=== PATIENT | female | born 1985 | race Caucasian/White ===

== ENCOUNTER 2017-11-26 16:35 | Inpatient (IN) ==
[2017-11-26] MEDS ORDERED: PHENobarb/HYOSCY/ATROPINE/SCOP 1 DOSE BOTTLE PO ONE (17:14)
--- NOTE | 2017-11-26 17:29 | Emergency Department Note ---
General Adult HPI - General Source: patient Mode of arrival: ambulatory Limitations: no limitations - History of Present Illness Onset (ago): day(s) (5) Location: chest Radiation: non-radiation Severity: moderate Severity scale (1-10): 8 Quality: burning, stabbing, aching, sharp Consistency: intermittent Improves with: none Worsens with: other (laying flat) Associated symptoms: Reports: chest pain, shortness of breath. Denies: confusion, cough, diaphoresis, fever/chills, headaches, malaise, nausea/vomiting , syncope, weakness Treatments Prior to Arrival: other (gas X) <Jovita Acosta - Last Filed: 11/26/17 17:40> <Yayo Maloney - Last Filed: 11/26/17 20:19> - General Chief complaint: Shortness of Breath/Dyspnea Stated complaint: shortness of breath Time Seen by Provider: 11/26/17 17:07 - History of Present Illness HPI Narrative: 32-year-old female in ED today with present. Patient states for the last 5 days she's been having difficulty breathing. When she takes a deep breath she has chest pain more on the right side. At first she thought she was getting better and then it got worse. Patient states she is unable to lay flat the pain is sharp/stabbing and at times feels very heavy. Patient states it is an 8 out of 10. Patient does not smoke cigarettes. Patient is a type II diabetic uncontrolled last A1c 8.9. Patient did take some Gas-X per family advice did feel some relief from pressure when belching or having flatulence but did not take care of the pain. Patient states she has no nausea/vomiting after eating meals nor does she feel any additional pain after food intake. ( Jovita Acosta) - Related Data Previous Rx's Medication Instructions Recorded ferrous sulfate ER 325 mg (65 mg 325 mg PO BID #60 cap 03/20/16 iron) capsule,extended release blood sugar diagnostic strips See Dose Instructions .ROUTE 05/23/17 .MEDSUPPLY #100 each blood-glucose meter kit See Dose Instructions .ROUTE 05/23/17 .MEDSUPPLY #1 each lancets 33 gauge See Dose Instructions .ROUTE 05/23/17 .MEDSUPPLY #100 each metformin 500 mg tablet 1,000 mg PO BIDCC #360 tab 07/01/17 ibuprofen 800 mg tablet 800 mg PO TID PRN #60 tab 08/08/17 norgestimate 0.18 mg/0.215 mg/0.25 1 tab PO Q24H #84 tab 08/08/17 mg-ethinyl estradiol 25 mcg tablet canagliflozin 100 mg tablet 100 mg PO QAM #30 tab 09/18/17 Allergies Allergy/AdvReac Type Severity Reaction Status Date / Time capsaicin AdvReac Intermediate Blister Verified 11/26/17 16:38 Review of Systems Constitutional: Denies: fever, chills, weakness Eyes: Denies: eye pain, eye discharge ENT ED: Denies: ear pain, throat pain, dental pain, congestion Cardiovascular: Reports: chest pain, dyspnea on exertion. Denies: palpitations , edema Respiratory: Reports: shortness of breath. 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 Surgical history ED: Reports: - Social History smoking status: Never smoker Alcohol use: Reports: None <Jovita Acosta - Last Filed: 11/26/17 17:40> <Yayo Maloney - Last Filed: 11/26/17 20:19> - Past Medical History [facility] Narrative: All Active Problems (Last Reviewed 08/08/17 @ 08:20 by Kathryn Castellon DO) Abnormal Pap smear of cervix (Chronic) Cervical radiculopathy at C7 (Acute) Neck muscle strain (Acute) History of Papanicolaou smear of cervix (Chronic 06/12/11) Asthma (Chronic) Ingrown toenail (Chronic) Injury of great toe (Chronic) Abdominal pain (Chronic) Menorrhagia (Chronic) Diabetes mellitus (Chronic) Back pain (Chronic) Past Surgical History (Last Reviewed 08/08/17 @ 08:20 by Kathryn Castellon DO) delivery delivered (Resolved) No pertinent past surgical history (Resolved) Family History (Last Reviewed 08/08/17 @ 08:20 by Kathryn Castellon DO) Father Heart murmur Diabetes mellitus Hypoglycemia (Jovita Acosta) Physical Exam Limitations: no limitations General appearance: alert, in no apparent distress, other (pt is flushed) Head: atraumatic, normocephalic, normal inspection Eye: Present: normal appearance, PERRL. Absent: conjunctival injection ENT: normal exam, normal oropharynx, mucous membranes moist, normal external ear exam Neck: Present: normal inspection. Absent: lymphadenopathy Chest: Present: normal inspection, symmetric chest wall rise. Absent: tenderness Respiratory: Present: normal lung sounds bilaterally. Absent: respiratory distress, rales/crackles, wheezes Cardiovascular: Present: tachycardia. Absent: systolic murmur, diastolic murmur Abdominal: Present: soft, tenderness (RUQ), normal bowel sounds, Oviedo's sign. Absent: distention, guarding, rebound, rigidity Abdominal tenderness: Present: RUQ, moderate Extremities: Present: normal inspection. Absent: pedal edema Back: Present: normal inspection. Absent: tenderness, CVA tenderness (R), CVA tenderness (L) Neurological: Present: alert, oriented X3, normal gait Psychiatric: Present: normal affect, normal mood. Absent: depressed, agitated, anxious Skin: Present: warm, dry, intact, normal color. Absent: cyanosis, diaphoresis, erythema <Jovita Acosta - Last Filed: 11/26/17 17:40> Course <Jovita Acosta - Last Filed: 11/26/17 17:40> <Yayo Maloney - Last Filed: 11/26/17 20:19> Course Narrative: I assumed care of the patient from Jovita Acosta at 1800 and agree with the assessment findings. Patient is currently sitting the emergency department without significant amount pain. She rates pain 7 out of 10. Labs are still pending. Ultrasound completed that shows cholelithiasis with cholecystitis, common bile duct mildly dilated. (Yayo Maloney) Vital Signs Temperature 97.9 F 11/26/17 16:35 Pulse Rate 92 H 11/26/17 16:35 Respiratory Rate 22 11/26/17 16:35 Blood Pressure 136/86 11/26/17 16:35 Pulse Oximetry (%) 99 11/26/17 16:35 Temperature 97.9 F 11/26/17 16:35 Pulse Rate 81 11/26/17 19:21 Respiratory Rate 17 11/26/17 19:40 Blood Pressure 141/87 11/26/17 19:40 Pulse Oximetry (%) 100 11/26/17 19:21 Medical Decision Making - Lab Data Result diagrams: 11/26/17 17:30 11/26/17 17:30 <Jovita Acosta - Last Filed: 11/26/17 17:40> - Medical Records Medical records reviewed: Yes I reviewed the patient's medical records. - Lab Data Lab results reviewed: Yes I reviewed the patient's lab results. Result diagrams: 11/26/17 17:30 11/26/17 17:30 - Radiology Data Radiology results reviewed: Yes I reviewed the patient's radiology results. <Yayo Maloney - Last Filed: 11/26/17 20:19> - [facility] Narrative Medical decision making narrative: Primary patient GI cocktail with no relief. [facility] this provider shift ended. (Jovita Acosta) Gallbladder ultrasound shows cholecystitis. Labs today are remarkably well. Spoke with Dr. Percy Santos who accepted the patient for surgical consultation, and he will see the patient in the morning. She will be admitted to medical/ surgical floor. Patient was given 2 mg of morphine here in the emergency department for her pain which did help with her pain. Start the patient on Zosyn 3.375 mg every 6 hours, normal saline at 100 mL per hour. Patient will be nothing by mouth after midnight. Ondansetron if needed for nausea. (Yayo Maloney) - Lab Data Lab Results 11/26/17 11/26/17 11/26/17 Range/Units 17:30 17:30 17:30 WBC 7.4 (4.5-11.0) K/mcL RBC 4.34 (4.00-5.20) M/mcL Hgb 10.5 L (12.0-15.0) g/dL Hct 31.6 L (36.0-48.0) % MCV 72.8 L (80.0-100.0) fL MCH 24.2 L (26.0-34.0) pg MCHC 33.3 (31.0-36.0) g/dL RDW 17.3 H (11.5-14.5) % Plt Count 389 (140-440) K/mcL MPV 8.3 (7.4-10.4) fL Gran % 68.3 (38.0-78.0) % Lymph % (Auto) 25.3 (15.5-49.0) % Calhoun % (Auto) 3.8 (1.0-12.0) % Eos % (Auto) 2.0 (0.0-7.0) % Baso % (Auto) 0.6 (0.0-2.0) % Gran # 5.1 (1.8-8.0) K/mcL Lymph # (Auto) 1.9 (1.5-4.8) K/mcL Calhoun # (Auto) 0.3 (0.1-0.9) K/mcL Eos # (Auto) 0.1 (0.0-0.7) K/mcL Baso # (Auto) 0 (0.0-0.3) K/mcL D-Dimer (0.00-0.40) ug/ml Sodium 137 (133-145) mmol/L Potassium 3.9 (3.3-5.1) mmol/L Chloride 101 (96-108) mmol/L Carbon Dioxide 23 (22-30) mmol/L Anion Gap 13.0 (8-16) BUN 8 (6-20) mg/dl Creatinine 0.6 (0.6-1.1) mg/dl GFR Calculation 121 Glucose 263 H (70-105) mg/dL Calcium 8.5 L (8.6-10.4) mg/dl Total Bilirubin < 0.2 (0.0-1.0) mg/dL AST 11 (0-37) U/l ALT 11 (0-40) U/l Alkaline Phosphatase 77 (39-117) U/L Total Creatine Kinase 53 (24-170) IU/L CK-MB (CK-2) 1.2 (0-2.9) ng/ml Myoglobin < 25 L (25-58) ng/ml Troponin T < 0.01 (0-0.03) ng/ml Total Protein 6.5 (5.9-8.4) gm/dL Albumin 3.6 (3.2-5.2) gm/dL Globulin 2.9 (2.2-3.7) gm/dL Albumin/Globulin Ratio 1.2 (1.0-2.3) Lipase (7-60) U/L 11/26/17 11/26/17 Range/Units 17:30 17:31 WBC (4.5-11.0) K/mcL RBC (4.00-5.20) M/mcL Hgb (12.0-15.0) g/dL Hct (36.0-48.0) % MCV (80.0-100.0) fL MCH (26.0-34.0) pg MCHC (31.0-36.0) g/dL RDW (11.5-14.5) % Plt Count (140-440) K/mcL MPV (7.4-10.4) fL Gran % (38.0-78.0) % Lymph % (Auto) (15.5-49.0) % Calhoun % (Auto) (1.0-12.0) % Eos % (Auto) (0.0-7.0) % Baso % (Auto) (0.0-2.0) % Gran # (1.8-8.0) K/mcL Lymph # (Auto) (1.5-4.8) K/mcL Calhoun # (Auto) (0.1-0.9) K/mcL Eos # (Auto) (0.0-0.7) K/mcL Baso # (Auto) (0.0-0.3) K/mcL D-Dimer 0.47 H (0.00-0.40) ug/ml Sodium (133-145) mmol/L Potassium (3.3-5.1) mmol/L Chloride (96-108) mmol/L Carbon Dioxide (22-30) mmol/L Anion Gap (8-16) BUN (6-20) mg/dl Creatinine (0.6-1.1) mg/dl GFR Calculation Glucose (70-105) mg/dL Calcium (8.6-10.4) mg/dl Total Bilirubin (0.0-1.0) mg/dL AST (0-37) U/l ALT (0-40) U/l Alkaline Phosphatase (39-117) U/L Total Creatine Kinase (24-170) IU/L CK-MB (CK-2) (0-2.9) ng/ml Myoglobin (25-58) ng/ml Troponin T (0-0.03) ng/ml Total Protein (5.9-8.4) gm/dL Albumin (3.2-5.2) gm/dL Globulin (2.2-3.7) gm/dL Albumin/Globulin Ratio (1.0-2.3) Lipase 17 (7-60) U/L Disposition <Jovita Acosta - Last Filed: 11/26/17 17:40> Pt seen by PARK INTERPRETIVE SPECIALIST/PA only: Yes <Yayo Maloney - Last Filed: 11/26/17 20:19> Clinical Impression: Cholecystitis Disposition: Xfer As Inpt ([facility]) Condition: Fair Referrals: Kathryn Castellon DO [Primary Care Provider] -
--- NOTE | 2017-11-26 17:30 | XRay Report ---
CLINICAL INFORMATION: Chest Pain COMPARISON: 07/29/2012 FINDINGS: The heart size, mediastinum and pulmonary vessels are unremarkable. The lungs are clear. There are no effusions. The bones and soft tissues are within normal limits. IMPRESSION: Normal chest. Interpreted and Authenticated by: Arjun Ta 11/26/17
[2017-11-26 18:17] LABS: Basophils # (Auto) 0 K/mcL (0.0-0.3); Basophils % (Auto) 0.6 % (0.0-2.0); Eosinophils # (Auto) 0.1 K/mcL (0.0-0.7); Granulocytes % (Auto) 68.3 % (38.0-78.0); Lymphocytes # (Auto) 1.9 K/mcL (1.5-4.8); Lymphocytes % (Auto) 25.3 % (15.5-49.0); Mean Cell Volume 72.8 fL (80.0-100.0); Mean Corpuscular HGB Conc 33.3 g/dL (31.0-36.0); Mean Corpuscular Hemoglobin 24.2 pg (26.0-34.0); Monocytes # (Auto) 0.3 K/mcL (0.1-0.9); Monocytes % (Auto) 3.8 % (1.0-12.0); Platelet Count 389 K/mcL (140-440); RBC 4.34 M/mcL (4.00-5.20); Red Cell Distribution Width 17.3 % (11.5-14.5)
[2017-11-26 18:39] LABS: Myoglobin < 25 ng/ml (25-58)
[2017-11-26 18:44] LABS: ALT/SGPT 11 U/l (0-40); Albumin 3.6 gm/dL (3.2-5.2); Albumin/Globulin Ratio 1.2 (1.0-2.3); Alkaline Phosphatase 77 U/L (39-117); Blood Urea Nitrogen 8 mg/dl (6-20); Creatine Kinase 53 IU/L (24-170); Creatine Kinase MB 1.2 ng/ml (0-2.9)
--- NOTE | 2017-11-26 18:52 | Ultrasound Report ---
CLINICAL INFORMATION: Right upper quadrant pain COMPARISON: None. FINDINGS: There is a 2 cm stone within the gallbladder neck. Gallbladder wall is thickened (5.4 mm) with overlying focal tenderness and a small amount of pericholecystic fluid. Findings are compatible with cholecystitis. Common bile duct is normal - 6 mm. Liver is diffusely hyperechoic compatible with fatty change. Pancreas is suboptimally imaged, but no gross abnormalities. No IMPRESSION: Cholecystitis Interpreted and Authenticated by: Arjun Ta 11/26/17
[2017-11-26] MEDS ORDERED: ONDANSETRON 4 MG/2 ML VIAL IV PRN (19:45)
[2017-11-26] MEDS: 0.9 % SODIUM CHLORIDE 1,000 ML IV SCH (20:28)
[2017-11-26] MEDS: PIPERACILLIN SODIUM/TAZOBACTAM 3.375 GM in DEXTROSE 5% IN WATER 50 ML IV SCH (20:28)
[2017-11-26 23:36] LABS: Appearance,Urine CLEAR; Bacteria,Urine 0 /hpf (0); Bilirubin,Urine NEG (NEG); Color,Urine YELLOW; Glucose,Urine (UA) >=500 mg/dL (NEG); Leukocyte Esterase,Urine NEG /uL (NEG); Protein,Urine NEG (NEG); Specific Gravity,Urine 1.017 (1.000-1.035); Urine Blood >=1.0 mg/dL (<0.03); Urine RBC > 182 /hpf (0-1); Urine Squamous Epithelial Cell < 1 /hpf (0-4); Urine WBC 0 /hpf (0-4); Urobilinogen,Urine NEG (NEG)
[2017-11-27] MEDS: PIPERACILLIN SODIUM/TAZOBACTAM 3.375 GM in DEXTROSE 5% IN WATER 50 ML IV SCH ×4 (02:17→17:18)
[2017-11-27] MEDS: 0.9 % SODIUM CHLORIDE 1,000 ML IV SCH ×3 (07:30→21:46)
--- NOTE | 2017-11-27 09:18 | General Surg History&Physical ---
History of Present Illness Patient information: Note initiated : 11/27/17 at 9:16 am Service Date, if different from initiated Date: [] Patient: Tiffany Ledbetter 32 y/o F admitted on 11/26/17 for shortness of breath. Chief Complaint: [] HPI: Ms. Ledbetter is a 32 year old F with history of recurrent lower chest discomfort. Discomfort was not positional. She had multiple attacks and attacks of indigestion. The symptoms were not related to food intake. She had a cardiac workup which was negative. Upper abdominal ultrasound reveals multiple gallstones with a large stone impacted in the cystic duct with gallbladder wall thickening and pericholecystic fluid and tissue edema. Patient is admitted with acute cholecystitis. She is counseled for laparoscopic cholecystectomy Past History Past medical history: Diabetes mellitus Chronic low back pain Past surgical history: x1 Past family history: Diabetes mellitus Breast cancer Past social history: Never smoker Occasional alcohol intake Never drug use Medications and Allergies Home Medications Medication Instructions Recorded Confirmed Type metformin 500 mg tablet 1,000 mg PO BIDCC #360 tab 07/01/17 11/27/17 Rx ibuprofen 800 mg tablet 800 mg PO TID PRN #60 tab 08/08/17 11/27/17 Rx Allergies Allergy/AdvReac Type Severity Reaction Status Date / Time capsaicin AdvReac Intermediate Blister Verified 11/26/17 16:38 Exam Temp Pulse Resp BP Pulse Ox 96.9 F L 72 12 100/66 97 11/27/17 07:04 11/27/17 07:04 11/27/17 07:04 11/27/17 07:04 11/27/17 07:04 - General physical appearance well developed, well nourished, no distress, other (Overweight) - Eyes PERRL, normal ocular movement. negative: icteric - ENT normal pinna, normal nares, normal mucosa, no hearing loss, no congestion - Head Head exam IM: Present: atraumatic, normocephalic - Neck no masses, no bruits, trachea midline, no lymphadectomy, no venous distension - Cardiovascular Cardiovascular exam IM: Present: normal rate and rhythm - Respiratory normal expansion, normal respiratory effort, clear to percussion, clear to auscultation - Abdomen Abdomen: Present: soft, tender (Right upper quadrant tenderness with mild guarding; normal active bowel sounds; no distention), bowel sounds Hernia: Present: none - Genitourinary Present: normal external genitalia - Integumentary Present: no rash, no growths, no abnormal pigmentation - Neurologic Present: normal coordination, normal sensation - Musculoskeletal Present: normal gait, normal posture - Psychiatric Present: oriented to time, oriented to person, oriented to place, speech is normal, memory intact Assessment and Plan (1) Cholelithiasis with cholecystitis without obstruction Patient counseled for laparoscopic cholecystectomy. It will be performed later today. Status: Acute (2) Diabetes mellitus type 2 in obese Sliding scale insulin coverage until patient can take p.o. medication Status: Acute
[2017-11-27] MEDS: INSULIN LISPRO 1 UNIT/0.01 ML UNIT SQ SCH ×3 (09:37→17:19)
[2017-11-27] MEDS ORDERED: fentaNYL 250 MCG/5 ML VIAL IV ONE (12:40)
[2017-11-27] MEDS ORDERED: MIDAZOLAM 5 MG/5 ML VIAL IV ONE (12:40)
[2017-11-27] MEDS ORDERED: GLYCOPYRROLATE 0.2 MG/ML VIAL IV ONE (12:40)
[2017-11-27] MEDS ORDERED: ROCURONIUM 10 MG/ML ML IV ONE (12:40)
[2017-11-27] MEDS ORDERED: PROPOFOL 200 MG/20 ML VIAL IV ONE (12:40)
[2017-11-27] MEDS ORDERED: ONDANSETRON 4 MG/2 ML VIAL IV ONE (12:40)
[2017-11-27] MEDS ORDERED: DEXAMETHASONE 10 MG/ML VIAL IV ONE (12:40)
[2017-11-27] MEDS ORDERED: NEOSTIGMINE 1 MG/ML VIAL IV ONE (12:40)
[2017-11-27] MEDS ORDERED: LIDOCAINE HCL/PF 100 MG/5 ML SYRINGE IV ONE (12:40)
[2017-11-27] MEDS ORDERED: FLUMAZENIL 0.1 MG/ML ML IV PRN (13:08)
[2017-11-27] MEDS ORDERED: diphenhydrAMINE 50 MG/ML VIAL IV PRN (13:08)
[2017-11-27] MEDS ORDERED: ONDANSETRON 4 MG/2 ML VIAL IV PRN (13:08)
[2017-11-27] MEDS ORDERED: ACETAMINOPHEN 1,000 MG/100 ML BOTTLE IV ONE (13:08)
[2017-11-27] MEDS ORDERED: NALOXONE HCL 0.4 MG/ML VIAL IV PRN (13:08)
[2017-11-27] MEDS ORDERED: LACTATED RINGERS 250 ML IV PRN (13:08)
[2017-11-27] MEDS ORDERED: IPRATROPIUM/ALBUTEROL 3 ML AMPUL.NEB NEB PRN (13:08)
[2017-11-27] MEDS ORDERED: BENZOCAINE/MENTHOL 1 LOZENGE PO PRN (13:08)
[2017-11-27] MEDS ORDERED: KETOROLAC 30 MG/ML VIAL IV PRN (13:08)
[2017-11-27] MEDS ORDERED: MEPERIDINE 25 MG/ML SYRINGE IV PRN (13:08)
[2017-11-27] MEDS ORDERED: PROMETHAZINE 25 MG/ML VIAL IV PRN (13:08)
[2017-11-27] MEDS ORDERED: LACTATED RINGERS 1,000 ML IV SCH (13:15)
--- NOTE | 2017-11-27 13:47 | Brief Operative Note ---
Date of procedure: 11/27/17 Pre-op diagnosis: ACUTE CHOLECYSTITIS WITH CHOLELITHIASIS Post-op diagnosis: other (ACUTE EMPYEMA OF GALLBLADDER WITH CHOLELITHIASIS) Procedure: LAPAROSCOPIC CHOLECYSTECTOMY Grafts/Implants: No Anesthesia: GETA Findings: SEVERE INFLAMMATION OF GALLBLADDER WITH EMPYEMA AND CYSTIC DUCT OBSTRUCTION Complications: none Surgeon: Yessy Santos Estimated blood loss (cc): 10 Specimens Removed/Pathology: other (GALLBLADDER) Condition: stable Disposition: PACU
[2017-11-27] MEDS ORDERED: ACETAMINOPHEN 1,000 MG/100 ML BOTTLE IV PRN (13:53)
[2017-11-27] MEDS: fentaNYL 100 MCG/2 ML VIAL IV PRN ×2 (14:27→14:30)
[2017-11-27 18:39] LABS: ALT/SGPT 438 U/l (0-40); Albumin 3.4 gm/dL (3.2-5.2); Albumin/Globulin Ratio 1.1 (1.0-2.3); Alkaline Phosphatase 146 U/L (39-117); Bilirubin,Direct 0.4 mg/dL (0.0-0.3); Blood Urea Nitrogen 7 mg/dl (6-20); Gamma Glutamyl Transpeptidase 88 U/L (5-36); Uric Acid 2.1 mg/dL (2.5-8.0)
[2017-11-28] MEDS: INSULIN LISPRO 1 UNIT/0.01 ML UNIT SQ SCH ×6 (00:03→23:31)
[2017-11-28] MEDS: PIPERACILLIN SODIUM/TAZOBACTAM 3.375 GM in DEXTROSE 5% IN WATER 50 ML IV SCH ×5 (05:06→23:30)
[2017-11-28 06:16] LABS: Basophils # (Auto) 0 K/mcL (0.0-0.3); Basophils % (Auto) 0.2 % (0.0-2.0); Eosinophils # (Auto) 0 K/mcL (0.0-0.7); Eosinophils % (Auto) 0 % (0.0-7.0); Granulocytes % (Auto) 87.9 % (38.0-78.0); Lymphocytes # (Auto) 0.9 K/mcL (1.5-4.8); Lymphocytes % (Auto) 8.3 % (15.5-49.0); Mean Cell Volume 73.3 fL (80.0-100.0); Mean Corpuscular HGB Conc 32.9 g/dL (31.0-36.0); Mean Corpuscular Hemoglobin 24.1 pg (26.0-34.0); Monocytes # (Auto) 0.4 K/mcL (0.1-0.9); Monocytes % (Auto) 3.6 % (1.0-12.0); Platelet Count 390 K/mcL (140-440); RBC 4.16 M/mcL (4.00-5.20); Red Cell Distribution Width 16.8 % (11.5-14.5)
[2017-11-28 07:25] LABS: ALT/SGPT 483 U/l (0-40); Albumin 3.1 gm/dL (3.2-5.2); Albumin/Globulin Ratio 1.1 (1.0-2.3); Alkaline Phosphatase 150 U/L (39-117); Bilirubin,Direct 0.5 mg/dL (0.0-0.3); Blood Urea Nitrogen 6 mg/dl (6-20); Gamma Glutamyl Transpeptidase 92 U/L (5-36); Uric Acid 1.9 mg/dL (2.5-8.0)
[2017-11-28] MEDS: 0.9 % SODIUM CHLORIDE 1,000 ML IV SCH ×4 (08:57→20:25)
[2017-11-28] MEDS: ACETAMINOPHEN 1,000 MG/100 ML BOTTLE IV PRN (09:00)
[2017-11-28] MEDS: ONDANSETRON 4 MG/2 ML VIAL IV PRN ×2 (11:48→18:26)
--- NOTE | 2017-11-28 13:03 | Surgical Pathology Report ---
HISTOLOGY SPECIMEN MICROSCOPIC DIAGNOSIS GALLBLADDER, CHOLECYSTECTOMY: -- CHRONIC CHOLECYSTITIS. -- CHOLELITHIASIS. (DMT:adj) PROCEDURAL IMPRESSION Cholelithiasis, cholecystitis without obstruction. GROSS DESCRIPTION Received in formalin labeled gallbladder, is a pink-michael gallbladder that is 8.2 x 3.4 x 1.7 cm. There is a 1.8 cm staple margin. The specimen contains multiple stones from less than 0.1 to 1.2 cm. The mucosa is pink and striated. The wall is up to 0.3 cm thick. Nylon Mender sections submitted - one cassette. (SCB:sln) Electronically Signed by: Rodolfo Mccurdy M.D.
--- NOTE | 2017-11-28 13:35 | General Surgery Progress Note ---
Subjective Patient reports: still having pain, tolerating a regular diet, flatus, afebrile Narrative: Note initiated : 11/28/17 at 1:33 pm Service Date, if different from initiated Date: [] Patient: Tiffany Ledbetter 32 y/o F admitted on 11/26/17 for shortness of breath. Chief Complaint: [Patient is having right-sided abdominal wall pain. She has mild nausea. She has had flatus and has tolerated diet without difficulty. Her white blood count is 10.4 and hemoglobin is 10. Bilirubin 1, alkaline phosphatase 150, AST 526, ALT 483] Objective Temp Pulse Resp BP Pulse Ox 98.3 F 70 14 118/74 99 11/28/17 11:45 11/28/17 13:24 11/28/17 13:24 11/28/17 13:24 11/28/17 13:24 - Additional Data Intake & Output - Last 24 hours: Intake & Output 11/26/17 11/27/17 11/28/17 11/29/17 05:59 05:59 05:59 05:59 Intake Total 600 / 600 2640 / 2640 1100 / 1100 Output Total 350 / 350 80 / 80 Balance 250 / 250 2560 / 2560 1100 / 1100 Weight 206 lb 207 lb 8 oz - General physical appearance moderate distress, moderate pain - Eyes PERRL, normal ocular movement - ENT normal pinna, normal nares, normal mucosa, no hearing loss, no congestion - Neck no masses, no bruits, trachea midline, no lymphadectomy, no venous distension - Respiratory normal expansion, normal respiratory effort, clear to percussion, clear to auscultation - Cardiovascular Cardiovascular exam: Present: normal rate and rhythm, RRR, +S1, +S2. Absent: JVD, tachycardia - Abdomen soft, tender (Mild tenderness around port sites otherwise benign abdomen; good active bowel sounds) - Integumentary no rash, no growths, no abnormal pigmentation - Neurologic normal coordination, normal sensation - Musculoskeletal normal gait, normal posture - Psychiatric oriented to time, oriented to person, oriented to place, speech is normal, memory intact - Labs 11/28/17 05:00 11/28/17 05:00 Diabetes panel 11/27/17 11/28/17 Range/Units 14:58 05:00 Sodium 138 140 (133-145) mmol/L Potassium 4.8 3.7 (3.3-5.1) mmol/L Chloride 102 106 (96-108) mmol/L Carbon Dioxide 24 21 L (22-30) mmol/L BUN 7 6 (6-20) mg/dl Creatinine 0.7 0.6 (0.6-1.1) mg/dl Glucose 205 H 159 H (70-105) mg/dL Calcium 8.1 L 8.1 L (8.6-10.4) mg/dl AST 646 H 526 H (0-37) U/l ALT 438 H 483 H (0-40) U/l Alkaline Phosphatase 146 H 150 H (39-117) U/L Total Protein 6.4 5.8 L (5.9-8.4) gm/dL Albumin 3.4 3.1 L (3.2-5.2) gm/dL Triglycerides 135 91 (<150) mg/dl Calcium panel 11/27/17 11/28/17 Range/Units 14:58 05:00 Calcium 8.1 L 8.1 L (8.6-10.4) mg/dl Phosphorus 3.6 3.6 (2.7-4.5) mg/dL Albumin 3.4 3.1 L (3.2-5.2) gm/dL Pituitary panel 11/27/17 11/28/17 Range/Units 14:58 05:00 Sodium 138 140 (133-145) mmol/L Potassium 4.8 3.7 (3.3-5.1) mmol/L Chloride 102 106 (96-108) mmol/L Carbon Dioxide 24 21 L (22-30) mmol/L BUN 7 6 (6-20) mg/dl Creatinine 0.7 0.6 (0.6-1.1) mg/dl Glucose 205 H 159 H (70-105) mg/dL Calcium 8.1 L 8.1 L (8.6-10.4) mg/dl Adrenal panel 11/27/17 11/28/17 Range/Units 14:58 05:00 Sodium 138 140 (133-145) mmol/L Potassium 4.8 3.7 (3.3-5.1) mmol/L Chloride 102 106 (96-108) mmol/L Carbon Dioxide 24 21 L (22-30) mmol/L BUN 7 6 (6-20) mg/dl Creatinine 0.7 0.6 (0.6-1.1) mg/dl Glucose 205 H 159 H (70-105) mg/dL Calcium 8.1 L 8.1 L (8.6-10.4) mg/dl Total Bilirubin 0.9 1.0 (0.0-1.0) mg/dL AST 646 H 526 H (0-37) U/l ALT 438 H 483 H (0-40) U/l Alkaline Phosphatase 146 H 150 H (39-117) U/L Total Protein 6.4 5.8 L (5.9-8.4) gm/dL Albumin 3.4 3.1 L (3.2-5.2) gm/dL Assessment and Plan (1) Cholelithiasis with cholecystitis without obstruction Status: Acute Assessment and plan: Patient is stable but she has significant rise in her liver transaminases. Will monitor for another 24 hours before discharge. Current Visit: Yes (2) Diabetes mellitus type 2 in obese Status: Acute Current Visit: Yes - Time Spent With Patient Total time spent is greater than 50% in coordination of care (as documented) at patient's floor/unit and/or counseling patient:
[2017-11-28] MEDS ORDERED: oxyCODONE/APAP 10/325MG TABLET PO PRN (13:37)
[2017-11-28] MEDS ORDERED: HYDROmorphone 2 MG/ML VIAL IV PRN (13:37)
[2017-11-28] MEDS: POLYETHYLENE GLYCOL 3350 17 GM PACKET PO SCH ×2 (14:47→20:34)
[2017-11-28] MEDS: metFORMIN 500 MG TABLET PO SCH (17:04)
[2017-11-28] MEDS ORDERED: PROMETHAZINE 25 MG/ML VIAL IV PRN (19:00)
[2017-11-28] MEDS ORDERED: PROMETHAZINE 25 MG/ML VIAL ONE (19:10)
[2017-11-29] MEDS: 0.9 % SODIUM CHLORIDE 1,000 ML IV SCH ×3 (04:40→10:40)
[2017-11-29] MEDS: PIPERACILLIN SODIUM/TAZOBACTAM 3.375 GM in DEXTROSE 5% IN WATER 50 ML IV SCH ×4 (05:38→23:12)
[2017-11-29] MEDS: INSULIN LISPRO 1 UNIT/0.01 ML UNIT SQ SCH ×4 (05:46→23:55)
[2017-11-29 05:52] LABS: Basophils # (Auto) 0 K/mcL (0.0-0.3); Basophils % (Auto) 0.8 % (0.0-2.0); Eosinophils # (Auto) 0.1 K/mcL (0.0-0.7); Eosinophils % (Auto) 2.2 % (0.0-7.0); Granulocytes % (Auto) 64.5 % (38.0-78.0); Lymphocytes # (Auto) 1.3 K/mcL (1.5-4.8); Lymphocytes % (Auto) 28.3 % (15.5-49.0); Mean Cell Volume 73.4 fL (80.0-100.0); Mean Corpuscular HGB Conc 32.4 g/dL (31.0-36.0); Mean Corpuscular Hemoglobin 23.8 pg (26.0-34.0); Monocytes # (Auto) 0.2 K/mcL (0.1-0.9); Monocytes % (Auto) 4.2 % (1.0-12.0); Platelet Count 335 K/mcL (140-440); RBC 3.79 M/mcL (4.00-5.20); Red Cell Distribution Width 17.6 % (11.5-14.5)
[2017-11-29 06:34] LABS: Albumin/Globulin Ratio 1.2 (1.0-2.3); Alkaline Phosphatase 185 U/L (39-117); Bilirubin,Direct 0.4 mg/dL (0.0-0.3); Blood Urea Nitrogen 5 mg/dl (6-20); Gamma Glutamyl Transpeptidase 137 U/L (5-36); Uric Acid 1.7 mg/dL (2.5-8.0)
[2017-11-29 06:39] LABS: ALT/SGPT 799 U/l (0-40)
[2017-11-29] MEDS: metFORMIN 500 MG TABLET PO SCH ×2 (10:39→17:05)
[2017-11-29] MEDS: POLYETHYLENE GLYCOL 3350 17 GM PACKET PO SCH ×2 (10:40→22:39)
--- NOTE | 2017-11-29 10:54 | Operative Note ---
DATE OF OPERATION: 11/27/2017 PREOPERATIVE DIAGNOSIS: Acute cholecystitis with cholelithiasis. POSTOPERATIVE DIAGNOSIS: Acute empyema of the gallbladder with cholelithiasis. PROCEDURE: Laparoscopic cholecystectomy. SURGEON: Yessy Santos MD FINDINGS: Severe inflammation of the gallbladder with empyema and cystic duct obstruction. DESCRIPTION OF PROCEDURE: Under general anesthesia, the patient's abdomen was prepped and draped in a sterile field. Supraumbilical incision was made. Veress needle was inserted uneventfully. Abdomen was insufflated with 2 liters of CO2. A 12 mm port was placed. Laparoscope was placed. A severely thickened, inflamed, engorged gallbladder was noted. Under videoscopic guidance, a 12 mm port and two 5 mm ports were placed in the right subcostal region. The gallbladder was decompressed with a Weck needle. It was then grasped and positioned. Inflammatory adhesions to the gallbladder were taken down using blunt dissection and electrocautery. Infundibulum of the gallbladder was identified and was then followed over to the cystic duct. The cystic duct was very fibrotic and foreshortened. It was dissected close to the gallbladder. The cystic artery branches were noted and followed onto the wall of the gallbladder. The cystic duct was too thick to hold clips so it was divided at its junction with the gallbladder using Endo-VIANEY stapler. The cystic artery branches were clipped with three clips each and divided. Using sharp and blunt dissection, the gallbladder was then from the infrahepatic bed without difficulty. It was placed in the Endopouch and retrieved. It contained large stones. Irrigation was carried out. Hemostasis in the bed was carried out. It was decided that no drain was needed. Further irrigation was carried out. CO2 was allowed to escape from the abdomen and the ports were removed. Fascia at the umbilicus was closed with 0 Vicryl. Skin incisions were closed with doug. Dressings were placed. The patient tolerated the procedure well. She was extubated and taken to the Postanesthetic Care Unit in stable, satisfactory condition. [email or web address]:jany Job ID: [id number] Doc ID: [id number] Yessy Santos M.D.
[2017-11-29] MEDS: ACETAMINOPHEN 1,000 MG/100 ML BOTTLE IV PRN (12:46)
--- NOTE | 2017-11-29 14:28 | General Surgery Progress Note ---
Subjective Patient reports: feels better, pain is less, tolerating liquids well, flatus, bowel movement, afebrile Narrative: Note initiated : 11/29/17 at 2:25 pm Service Date, if different from initiated Date: [] Patient: Tiffany Ledbetter 32 y/o F admitted on 11/26/17 for Shortness Of Breath /Cholecystitis. Chief Complaint: [Patient states that she feels better. She has minimal nausea at this time. She is tolerating liquids. LFTs are elevated but her bilirubin and alkaline phosphatase are essentially normal. ALT and AST are at a stable range] Objective Temp Pulse Resp BP Pulse Ox 98.3 F 80 16 124/80 98 11/29/17 11:49 11/29/17 04:00 11/29/17 11:49 11/29/17 11:49 11/29/17 11:49 - Additional Data Intake & Output - Last 24 hours: Intake & Output 11/27/17 11/28/17 11/29/17 11/30/17 05:59 05:59 05:59 05:59 Intake Total 600 / 600 2640 / 2640 4330 / 4330 150 / 150 Output Total 350 / 350 80 / 80 3450 / 3450 650 / 650 Balance 250 / 250 2560 / 2560 880 / 880 -500 / -500 Weight 206 lb 207 lb 8 oz 209 lb 14.4 oz - General physical appearance well developed, well nourished, no distress - Eyes PERRL, normal ocular movement - ENT normal pinna, normal nares, normal mucosa, no hearing loss, no congestion - Neck no masses, no bruits, trachea midline, no lymphadectomy, no venous distension - Respiratory normal expansion, normal respiratory effort, clear to auscultation - Cardiovascular Cardiovascular exam: Present: normal rate and rhythm, RRR, +S1, +S2. Absent: JVD, tachycardia - Abdomen tender (Mild tenderness in the operative site; active bowel sounds; bowel distention) - Integumentary no rash, no growths, no abnormal pigmentation - Neurologic normal coordination, normal sensation - Musculoskeletal normal gait, normal posture - Psychiatric oriented to time, oriented to person, oriented to place, speech is normal, memory intact - Labs 11/29/17 04:49 11/29/17 04:47 Diabetes panel 11/29/17 Range/Units 04:47 Sodium 141 (133-145) mmol/L Potassium 3.7 (3.3-5.1) mmol/L Chloride 105 (96-108) mmol/L Carbon Dioxide 25 (22-30) mmol/L BUN 5 L (6-20) mg/dl Creatinine 0.7 (0.6-1.1) mg/dl Glucose 153 H (70-105) mg/dL Calcium 7.8 L (8.6-10.4) mg/dl AST 484 H (0-37) U/l ALT 799 H (0-40) U/l Alkaline Phosphatase 185 H (39-117) U/L Total Protein 5.6 L (5.9-8.4) gm/dL Albumin 3.0 L (3.2-5.2) gm/dL Triglycerides 115 (<150) mg/dl Calcium panel 11/29/17 Range/Units 04:47 Calcium 7.8 L (8.6-10.4) mg/dl Phosphorus 3.5 (2.7-4.5) mg/dL Albumin 3.0 L (3.2-5.2) gm/dL Pituitary panel 11/29/17 Range/Units 04:47 Sodium 141 (133-145) mmol/L Potassium 3.7 (3.3-5.1) mmol/L Chloride 105 (96-108) mmol/L Carbon Dioxide 25 (22-30) mmol/L BUN 5 L (6-20) mg/dl Creatinine 0.7 (0.6-1.1) mg/dl Glucose 153 H (70-105) mg/dL Calcium 7.8 L (8.6-10.4) mg/dl Adrenal panel 11/29/17 Range/Units 04:47 Sodium 141 (133-145) mmol/L Potassium 3.7 (3.3-5.1) mmol/L Chloride 105 (96-108) mmol/L Carbon Dioxide 25 (22-30) mmol/L BUN 5 L (6-20) mg/dl Creatinine 0.7 (0.6-1.1) mg/dl Glucose 153 H (70-105) mg/dL Calcium 7.8 L (8.6-10.4) mg/dl Total Bilirubin 0.9 (0.0-1.0) mg/dL AST 484 H (0-37) U/l ALT 799 H (0-40) U/l Alkaline Phosphatase 185 H (39-117) U/L Total Protein 5.6 L (5.9-8.4) gm/dL Albumin 3.0 L (3.2-5.2) gm/dL Assessment and Plan (1) Cholelithiasis with cholecystitis without obstruction Status: Acute Assessment and plan: Patient is stable; will check enzymes once more before discharge Current Visit: Yes (2) Diabetes mellitus type 2 in obese Status: Acute Current Visit: Yes - Time Spent With Patient Total time spent is greater than 50% in coordination of care (as documented) at patient's floor/unit and/or counseling patient:
[2017-11-29] MEDS: ONDANSETRON 4 MG/2 ML VIAL IV PRN (23:20)
[2017-11-30] MEDS: 0.9 % SODIUM CHLORIDE 1,000 ML IV SCH (03:30)
[2017-11-30] MEDS: PIPERACILLIN SODIUM/TAZOBACTAM 3.375 GM in DEXTROSE 5% IN WATER 50 ML IV SCH ×2 (05:05→12:03)
[2017-11-30] MEDS: INSULIN LISPRO 1 UNIT/0.01 ML UNIT SQ SCH ×2 (05:26→12:03)
[2017-11-30] MEDS: metFORMIN 500 MG TABLET PO SCH (08:40)
[2017-11-30] MEDS: POLYETHYLENE GLYCOL 3350 17 GM PACKET PO SCH (11:11)
--- NOTE | 2017-11-30 13:03 | Discharge Summary ---
Providers - Providers Patient information: Note initiated : 11/30/17 at 1:01 pm Service Date, if different from initiated Date: [] Patient: Tiffany Ledbetter 32 y/o F admitted on 11/28/17 for Shortness Of Breath /Cholecystitis. Chief Complaint: [] Date of admission: 11/26/17 Discharge date: 11/30/17 Attending physician: Yessy Santos Hospitalization Hospital course: 32-year-old female admitted on the evening of 26 November 2017 with upper abdominal pain and nausea. Evaluation revealed large gallstones with edema of the gallbladder. She underwent laparoscopic cholecystectomy on 27 November. She was found to have empyema of the gallbladder with thickened gallbladder wall. The surgery proceeded uneventfully. In the postoperative period she had increased right upper quadrant pain with nausea and there was a bump in her liver panel though her bilirubin was normal and her alkaline phosphatase was minimally elevated. She was treated and her labs were repeated. The nausea has resolved. Her bilirubin remains normal and her alkaline phosphatase is slightly elevated at 185 her AST and ALT are still significantly elevated suggesting that she has some parenchymal inflammation. She is clinically stable at this time and is discharged home with plans for follow-up liver panel in 1 week. Discharge diagnosis: Acute cholecystitis with cholelithiasis Reason for admission: Upper abdominal pain with gallbladder stones Procedures: Laparoscopic cholecystectomy Pertinent studies/significant findings: CT of abdomen and pelvis Upper abdominal ultrasound Complications: None Exam Temp Pulse Resp BP Pulse Ox 97.9 F 64 16 120/78 98 11/30/17 11:37 11/30/17 04:00 11/30/17 11:37 11/30/17 11:37 11/30/17 11:37 - General physical appearance well developed, well nourished, no distress - Eyes PERRL, normal ocular movement. negative: icteric - ENT normal pinna, normal nares, normal mucosa, no hearing loss, no congestion - Head Head exam IM: Present: atraumatic, normocephalic - Neck no masses, no bruits, trachea midline, no lymphadectomy, no venous distension - Cardiovascular Cardiovascular exam IM: Present: normal rate and rhythm - Respiratory normal expansion, normal respiratory effort, clear to percussion, clear to auscultation - Abdomen Abdomen: Present: soft, tender (Mild tenderness of perioperative sites; good active bowel sounds), bowel sounds Hernia: Present: none - Genitourinary Present: normal external genitalia - Integumentary Present: no rash, no growths, no abnormal pigmentation - Neurologic Present: normal coordination, normal sensation - Musculoskeletal Present: normal gait, normal posture - Psychiatric Present: oriented to time, oriented to person, oriented to place, speech is normal, memory intact Discharge Plan - Patient/Caregiver Discharge Instructions Activity: increase activity as tolerated Diet: Low Fat Additional Instructions: May shower CMP lab in 1 week Office visit 2 weeks Prescriptions: HYDROcodone/APAP 10/325MG [[place] 10-325Mg] 1 tab PO Q4H PRN #30 tab PRN Reason: Pain oxyCODONE HCL/ACETAMINOPHEN [Endocet 5-325 Tablet] 1 tab PO Q4H PRN #60 tablet PRN Reason: Pain - Follow up Plan Follow up with: Yessy Santos MD [Physician] - 12/12/17 2:30 pm Disposition: Home, Self-Care Prognosis: Good Rehab Potential: Good I certify that the patient requires SNF services.: No Overall status at discharge: patient is not back to baseline Pending Studies Resuscitation Status Full Code Diet Regular Diet Start Dottie Nov 28 626 Diagnostic Test (Pha) (Accu-Chek) 1 each FS Q6 ELVIA; Protocol Last Admin: 11/30/17 11:10 Dose: 1 each Admin: 11/30/17 05:26 Dose: 1 each Admin: 11/29/17 23:53 Dose: 1 each Admin: 11/29/17 16:36 Dose: 1 each Admin: 11/29/17 10:40 Dose: 1 each Admin: 11/29/17 05:42 Dose: 1 each Admin: 11/28/17 23:31 Dose: Admin: 11/28/17 16:59 Dose: 1 each Admin: 11/28/17 11:40 Dose: 1 each Admin: 11/28/17 05:15 Dose: 1 each Admin: 11/27/17 23:59 Dose: 1 each Admin: 11/27/17 16:55 Dose: 1 each Piperacillin Sod/Tazobactam (Sod 3.375 gm/ Dextrose) 50 mls @ 100 mls/hr IV Q6H ELVIA Last Admin: 11/30/17 12:03 Dose: 100 mls/hr Infusion: 11/30/17 08:41 Dose: 0 mls/hr Admin: 11/30/17 05:05 Dose: 100 mls/hr Infusion: 11/29/17 23:42 Dose: 100 mls/hr Admin: 11/29/17 23:12 Dose: 100 mls/hr Infusion: 11/29/17 18:14 Dose: 100 mls/hr Admin: 11/29/17 17:44 Dose: 100 mls/hr Infusion: 11/29/17 12:01 Dose: 100 mls/hr Admin: 11/29/17 11:31 Dose: 100 mls/hr Infusion: 11/29/17 06:08 Dose: 100 mls/hr Admin: 11/29/17 05:38 Dose: 100 mls/hr Infusion: 11/29/17 00:00 Dose: 100 mls/hr Admin: 11/28/17 23:30 Dose: 100 mls/hr Infusion: 11/28/17 17:35 Dose: 0 mls/hr Admin: 11/28/17 17:04 Dose: 100 mls/hr Infusion: 11/28/17 12:20 Dose: 0 mls/hr Admin: 11/28/17 11:48 Dose: 100 mls/hr Infusion: 11/28/17 05:36 Dose: 100 mls/hr Admin: 11/28/17 05:06 Dose: 100 mls/hr Infusion: 11/28/17 00:30 Dose: 100 mls/hr Admin: 11/28/17 00:00 Dose: 100 mls/hr Infusion: 11/27/17 18:25 Dose: 0 mls/hr Admin: 11/27/17 17:18 Dose: 100 mls/hr Acetaminophen (Ofirmev) 1,000 mg in 100 mls @ 200 mls/hr IV Q6H PRN PRN Reason: Pain Last Infusion: 11/29/17 13:20 Dose: 0 mls/hr Admin: 11/29/17 12:46 Dose: 200 mls/hr Infusion: 11/28/17 09:35 Dose: 0 mls/hr Admin: 11/28/17 09:00 Dose: 200 mls/hr Sodium Chloride (Sodium Chloride 0.9%) 1,000 mls @ 50 mls/hr IV .Q20H ELVIA Last Admin: 11/30/17 03:30 Dose: 50 mls/hr Infusion: 11/30/17 00:40 Dose: 50 mls/hr Admin: 11/29/17 10:40 Dose: Not Given Admin: 11/29/17 04:40 Dose: 50 mls/hr Admin: 11/28/17 14:48 Dose: Insulin Human Lispro (Humalog) 0 unit SQ Q6 ELVIA; Protocol Last Admin: 11/30/17 12:03 Dose: 4 unit Admin: 11/30/17 05:26 Dose: 2 unit Admin: 11/29/17 23:55 Dose: 4 unit Admin: 11/29/17 17:06 Dose: 6 unit Admin: 11/29/17 10:40 Dose: Not Given Admin: 11/29/17 05:46 Dose: 2 unit Admin: 11/28/17 23:31 Dose: Admin: 11/28/17 21:42 Dose: 6 unit Admin: 11/28/17 17:04 Dose: 4 unit Admin: 11/28/17 11:48 Dose: 8 unit Admin: 11/28/17 05:18 Dose: 2 unit Admin: 11/28/17 00:03 Dose: 6 unit Admin: 11/27/17 17:19 Dose: 6 unit Metformin HCl (Glucophage) 1,000 mg PO BIDCC [facility] Last Admin: 11/30/17 08:40 Dose: 1,000 mg Admin: 11/29/17 17:05 Dose: 1,000 mg Admin: 11/29/17 10:39 Dose: 1,000 mg Admin: 11/28/17 17:04 Dose: 1,000 mg Morphine Sulfate (Morphine) 2 mg IV Q1HP PRN PRN Reason: Chest Pain Last Admin: 11/29/17 23:08 Dose: 2 mg Admin: 11/29/17 05:00 Dose: 2 mg Admin: 11/28/17 20:34 Dose: 2 mg Admin: 11/28/17 13:15 Dose: 2 mg Admin: 11/28/17 11:25 Dose: 2 mg Admin: 11/28/17 05:12 Dose: 2 mg Admin: 11/27/17 19:35 Dose: 2 mg Admin: 11/27/17 16:56 Dose: 2 mg Admin: 11/27/17 15:00 Dose: 2 mg Ondansetron HCl (Zofran) 4 mg IV Q4HP PRN PRN Reason: Nausea And Vomiting Last Admin: 11/29/17 23:20 Dose: 4 mg Admin: 11/28/17 18:26 Dose: 4 mg Admin: 11/28/17 11:48 Dose: 4 mg Oxycodone/Acetaminophen (Percocet 10-325mg) 1 tab PO Q4HP PRN PRN Reason: PAIN LEVEL 3-6 Last Admin: 11/28/17 14:47 Dose: 1 tab Polyethylene Glycol (Miralax) 17 gm PO BID ELVIA Last Admin: 11/30/17 11:11 Dose: Admin: 11/29/17 22:39 Dose: Not Given Admin: 11/29/17 10:40 Dose: 17 gm Admin: 11/28/17 20:34 Dose: 17 gm Admin: 11/28/17 14:47 Dose: 17 gm Shift Summary 11/30/17 04:28 Shift Summary by Cruzito Cowart VSTelma on RA. Up ad bart in room. Voiding per BR, 1 loose stool last night. Midnight blood sugar 182. Received 2mg Morphine x1 and zofran after morphine made pt nauseous (this was the only time pt was nauseous t/o night). No emesis this shift. IV to LFA running NS @ 50mL/hr w/intermittent Zosyn. 4 lap sites to abdomen, dressings CDI. Minimal complaints of pain. Uses IS with reminders. Uses call light appropriately. Pleasant and cooperative w/cares. Initialized on 11/30/17 04:28 - END OF NOTE
== END 2017-11-30 15:50 | disposition home or self-care (01) | DRG 419 ==
LOC: MEDSUR 16:35 → ED 16:35 → MEDSUR 21:00
PROVIDERS: ADMIT Family Medicine Adult Medicine; ATTEND Family Medicine Adult Medicine